=== PATIENT | female | born 1955 | race Caucasian/White ===

== ENCOUNTER 2017-06-15 19:07 | Inpatient (IN) ==
--- NOTE | 2017-06-15 19:48 | Emergency Department Note ---
Disposition Clinical Impression: Hyponatremia, Hypomagnesemia Acute renal failure Qualifiers: Acute renal failure type: unspecified Qualified Code(s): N17.9 - Acute kidney failure, unspecified Disposition: Admitted As Inpatient Condition: Good Referrals: Kitty Tan MD [Primary Care Provider] - Forms: ED Satisfaction Letter Time of Disposition: 20:20 General Adult HPI - General Chief complaint: ED Recheck/Abnormal Lab/Rx Stated complaint: Low sodium Time Seen by Provider: 06/15/17 19:11 Source: patient Limitations: no limitations Nursing Notes Reviewed: Yes Vital Signs Reviewed: Yes - History of Present Illness HPI Narrative: 61 year old female with HX of 3 weeks of generalized weakness and nausea with vomitting. Patient states taht she was seen by her primary care doctor and they did preliminary work and that her sodium was low at 116. Patient states that she vomitted this morning but feels nauseated now. Patient states she also has had a productive cough without fevers or chills. Patinet states that she sargent snot have a history of low sodium and does not have any history of lung cancer. Patinet states she does not have any history of increased water intake either. She does not have any increased altered mental status or confusion. Pain Scale: 0 - Related Data Allergies Allergy/AdvReac Type Severity Reaction Status Date / Time No Known Allergies Allergy Verified 06/15/17 19:18 Constitutional: Reports: weakness. Denies: fever, chills, weight change Eyes: Denies: eye pain, eye discharge, vision change ENT ED: Denies: ear pain, throat pain, dental pain, hearing loss, epistaxis, congestion, dysphagia Cardiovascular: Denies: chest pain, palpitations, dyspnea on exertion, edema, syncope Respiratory: Denies: cough, dyspnea, wheezes, hemoptysis, stridor Gastrointestinal: Reports: nausea, vomiting. Denies: abdominal pain, diarrhea, constipation, hematemesis, melena, hematochezia Genitourinary: Denies: dysuria, frequency, hematuria, discharge Musculoskeletal: Denies: back pain, neck pain, arthralgia, myalgia Integumentary: Denies: rash, abrasion, lesions Neurological: Denies: headache, weakness, numbness, paresthesias, confusion, abnormal gait, vertigo Psychiatric: Denies: anxiety, depression, suicidal thoughts, homicidal thoughts , auditory hallucinations, visual hallucinations Endocrine: Denies: fatigue Hematological/Lymphatic: Denies: easy bleeding, easy bruising Allergic/Immunologic: Denies: facial swelling, urticaria Past Medical History - Past Medical History Medical history: Reports: hypertension Psychiatric history: Reports: no psych history [employer]OR history: Reports: bilateral tubal ligation - Social History Smoking Status: Never smoker Smokeless Tobacco Status: No Alcohol use: Reports: occasionally Drug use: Reports: none Physical Exam - General Limitations: no limitations General appearance: alert, in no apparent distress - Head Head exam: atraumatic, normocephalic, normal inspection - Eye Eye exam: Present: normal appearance, PERRL, EOMI - Expanded Eye Exam Pupils: Left: reactive - ENT ENT exam: normal exam, normal oropharynx, mucous membranes moist - Expanded ENT Exam External ear exam: Present: normal external inspection Mouth exam: Present: normal external inspection Teeth exam: Present: normal inspection Throat exam: Present: normal inspection - Neck Neck exam: Present: normal inspection, full ROM, trachea midline - Chest Chest inspection: Present: normal inspection, symmetric chest wall rise - Respiratory Respiratory exam: Present: normal lung sounds bilaterally - Cardiovascular Cardiovascular exam: Present: regular rate, normal rhythm, normal heart sounds - Abdominal Exam Abdominal exam: Present: soft, Non-Tender. Absent: tenderness, distention, guarding, rebound, rigidity - Extremities Exam Extremities exam: Present: normal inspection, full ROM. Absent: tenderness, pedal edema - Expanded Upper Extremity Exam Shoulder exam: Present: normal inspection, full ROM Arm exam: Present: normal inspection, full ROM Elbow exam: Present: normal inspection, full ROM Forearm/Wrist exam: Present: normal inspection, full ROM Hand exam: Present: normal inspection, full ROM Vascular exam: Normal: capillary refill, radial pulse - Expanded Lower Extremity Exam Hip/Pelvis exam: Present: normal inspection, full ROM Upper leg exam: Present: normal inspection, full ROM Knee exam: Present: normal inspection, full ROM Lower leg exam: Present: normal inspection, full ROM Ankle exam: Present: normal inspection, full ROM Foot/toe exam: Present: normal inspection, full ROM Neurovascular/Tendon exam: Absent: motor deficit, sensory deficit, tendon deficit - Back Exam Back exam: Present: normal inspection, full ROM. Absent: tenderness - Neurological Exam Neurological exam: Present: alert, oriented X3 - Expanded Neurological Exam Patient oriented to: Present: person, place, time Coma Scale Eye Opening: Spontaneous Coma Scale Motor Response: Obeys Commands Coma Scale Verbal Response: Oriented Coma Scale Total: 15 - Psychiatric Psychiatric exam: Present: normal affect, normal mood - Skin Skin exam: Present: warm, dry, intact, normal color Course Course Narrative: we will do a generalized workup including a legionalla antigen and urine sodium and consult nephrology. - Consultations Consultation #1: discussed case with Dr. quinonez and he does not recommend hypertonic solution at this time. Due to her chronic hyponatremia. Restrict fluids as well as no thiazide treatments. We will admit to medicine. Time: 20:19 Consultation #2: discussed case with Dr. Ruano and he accepts patinet to his service Time: 20:27 Vital Signs Temperature 98.5 F 06/15/17 19:17 Pulse Rate 96 06/15/17 19:17 Respiratory Rate 18 06/15/17 19:17 Blood Pressure 108/70 06/15/17 19:17 O2 Sat by Pulse Oximetry 93 06/15/17 19:17 Temperature 98.5 F 06/15/17 19:17 Pulse Rate 87 06/15/17 20:17 Respiratory Rate 16 06/15/17 20:17 Blood Pressure 118/84 06/15/17 20:17 O2 Sat by Pulse Oximetry 98 06/15/17 20:17 Oxygen Delivery Oxygen Delivery Room Air Medical Decision Making - Lab Data Result diagrams: 06/15/17 19:40 06/15/17 19:40 Lab Results 06/15/17 06/15/17 06/15/17 Range/Units 19:40 19:40 19:40 WBC 8.9 (4.3-11.1) K/mcL RBC 3.38 L (3.82-4.97) M/mcL Hgb 12.1 (11.5-15.4) g/dL Hct 32.8 L (35.3-44.9) % MCV 97.0 (83.0-100.0) fL MCH 35.8 H (28.0-33.3) pg MCHC 36.9 H (31.6-35.5) g/dL RDW 11.8 (11.5-14.5) % Plt Count 218 (140-400) K/mcL MPV 8.1 L (9.4-12.4) fL Immature Gran % 1.0 (0-4) % Seg Neutrophils % 71.4 % Lymphocytes % 16.7 % Monocytes % 10.3 % Eosinophils % 0.3 % Basophils % 0.3 % Neutrophils # 6.3 (1.6-8.9) K/mcL Lymphocytes # 1.5 (0.6-4.6) K/mcL Monocytes # 0.9 (0.0-1.3) K/mcL Eosinophils # 0.0 (0.0-0.6) K/mcL Basophils # 0.0 (0.0-0.2) K/mcL PT 9.9 (9.4-12.1) Seconds INR 0.9 APTT 26.5 (26.0-36.0) Seconds Sodium 115 L* (136-145) mEq/L Potassium 3.0 L (3.5-4.5) mEq/L Chloride 74 L (98-109) mEq/L Carbon Dioxide 28 (19-29) mEq/L BUN 14 (7-20) mg/dL Creatinine 1.31 H (0.57-1.11) mg/dL Est GFR ( Amer) 50 L (> 60) Est GFR (Non-Af Amer) 41 L (> 60) BUN/Creatinine Ratio 11 (6-26) Glucose 103 H (70-99) mg/dL Calculated Osmolality 241 L (280-300) Lactic Acid (0.5-2.2) mmol/L Calcium 9.1 (8.6-10.8) mg/dL Phosphorus (2.3-4.7) mg/dL Magnesium (1.6-2.6) mg/dL Total Bilirubin 0.8 (0.2-1.2) mg/dL Direct Bilirubin 0.5 (0.0-0.5) mg/dL Indirect Bilirubin 0.3 (0.0-1.2) mg/dL AST 68 H (5-34) Units/L ALT 40 (0-55) Units/L Alkaline Phosphatase 140 H (38-126) Units/L Troponin I (0-0.03) ng/mL Serum Total Protein 7.1 (6.0-8.3) g/dL Albumin 3.5 (3.5-5.0) g/dL Globulin 3.6 H (2.4-3.5) g/dL Albumin/Globulin Ratio 1.0 L (1.1-2.2) Amylase 41 (25-125) Units/L Lipase 16 (8-78) Units/L Urine Color (Yellow) Urine Clarity (Clear) Urine pH (5.0-8.0) pH Units Ur Specific [place] (1.010-1.025) Urine Protein (Neg-Trace) mg/dL Urine Glucose (UA) (Normal) mg/dL Urine Ketones (Negative) mg/dL Urine Blood (Negative) Urine Nitrite (Negative) Urine Bilirubin (Negative) Urine Urobilinogen (Normal) mg/dL Ur Leukocyte Esterase (Negative) Urine Microscopic RBC (0-3) per hpf Urine Microscopic WBC (0-3) per hpf Ur Squamous Epith Cells (None-Few) per lpf Urine Bacteria (None-Few) per hpf Hyaline Casts (None-Few) per lpf Ur Culture Indicated? (NO) Urine Sodium mEq/L 06/15/17 06/15/17 06/15/17 Range/Units 19:40 19:40 19:40 WBC (4.3-11.1) K/mcL RBC (3.82-4.97) M/mcL Hgb (11.5-15.4) g/dL Hct (35.3-44.9) % MCV (83.0-100.0) fL MCH (28.0-33.3) pg MCHC (31.6-35.5) g/dL RDW (11.5-14.5) % Plt Count (140-400) K/mcL MPV (9.4-12.4) fL Immature Gran % (0-4) % Seg Neutrophils % % Lymphocytes % % Monocytes % % Eosinophils % % Basophils % % Neutrophils # (1.6-8.9) K/mcL Lymphocytes # (0.6-4.6) K/mcL Monocytes # (0.0-1.3) K/mcL Eosinophils # (0.0-0.6) K/mcL Basophils # (0.0-0.2) K/mcL PT (9.4-12.1) Seconds INR APTT (26.0-36.0) Seconds Sodium (136-145) mEq/L Potassium (3.5-4.5) mEq/L Chloride (98-109) mEq/L Carbon Dioxide (19-29) mEq/L BUN (7-20) mg/dL Creatinine (0.57-1.11) mg/dL Est GFR ( Amer) (> 60) Est GFR (Non-Af Amer) (> 60) BUN/Creatinine Ratio (6-26) Glucose (70-99) mg/dL Calculated Osmolality (280-300) Lactic Acid 1.9 (0.5-2.2) mmol/L Calcium (8.6-10.8) mg/dL Phosphorus 2.5 (2.3-4.7) mg/dL Magnesium 1.1 L (1.6-2.6) mg/dL Total Bilirubin (0.2-1.2) mg/dL Direct Bilirubin (0.0-0.5) mg/dL Indirect Bilirubin (0.0-1.2) mg/dL AST (5-34) Units/L ALT (0-55) Units/L Alkaline Phosphatase (38-126) Units/L Troponin I 0.02 (0-0.03) ng/mL Serum Total Protein (6.0-8.3) g/dL Albumin (3.5-5.0) g/dL Globulin (2.4-3.5) g/dL Albumin/Globulin Ratio (1.1-2.2) Amylase (25-125) Units/L Lipase (8-78) Units/L Urine Color (Yellow) Urine Clarity (Clear) Urine pH (5.0-8.0) pH Units Ur Specific [place] (1.010-1.025) Urine Protein (Neg-Trace) mg/dL Urine Glucose (UA) (Normal) mg/dL Urine Ketones (Negative) mg/dL Urine Blood (Negative) Urine Nitrite (Negative) Urine Bilirubin (Negative) Urine Urobilinogen (Normal) mg/dL Ur Leukocyte Esterase (Negative) Urine Microscopic RBC (0-3) per hpf Urine Microscopic WBC (0-3) per hpf Ur Squamous Epith Cells (None-Few) per lpf Urine Bacteria (None-Few) per hpf Hyaline Casts (None-Few) per lpf Ur Culture Indicated? (NO) Urine Sodium mEq/L 06/15/17 06/15/17 Range/Units 19:48 19:55 WBC (4.3-11.1) K/mcL RBC (3.82-4.97) M/mcL Hgb (11.5-15.4) g/dL Hct (35.3-44.9) % MCV (83.0-100.0) fL MCH (28.0-33.3) pg MCHC (31.6-35.5) g/dL RDW (11.5-14.5) % Plt Count (140-400) K/mcL MPV (9.4-12.4) fL Immature Gran % (0-4) % Seg Neutrophils % % Lymphocytes % % Monocytes % % Eosinophils % % Basophils % % Neutrophils # (1.6-8.9) K/mcL Lymphocytes # (0.6-4.6) K/mcL Monocytes # (0.0-1.3) K/mcL Eosinophils # (0.0-0.6) K/mcL Basophils # (0.0-0.2) K/mcL PT (9.4-12.1) Seconds INR APTT (26.0-36.0) Seconds Sodium (136-145) mEq/L Potassium (3.5-4.5) mEq/L Chloride (98-109) mEq/L Carbon Dioxide (19-29) mEq/L BUN (7-20) mg/dL Creatinine (0.57-1.11) mg/dL Est GFR ( Amer) (> 60) Est GFR (Non-Af Amer) (> 60) BUN/Creatinine Ratio (6-26) Glucose (70-99) mg/dL Calculated Osmolality (280-300) Lactic Acid (0.5-2.2) mmol/L Calcium (8.6-10.8) mg/dL Phosphorus (2.3-4.7) mg/dL Magnesium (1.6-2.6) mg/dL Total Bilirubin (0.2-1.2) mg/dL Direct Bilirubin (0.0-0.5) mg/dL Indirect Bilirubin (0.0-1.2) mg/dL AST (5-34) Units/L ALT (0-55) Units/L Alkaline Phosphatase (38-126) Units/L Troponin I (0-0.03) ng/mL Serum Total Protein (6.0-8.3) g/dL Albumin (3.5-5.0) g/dL Globulin (2.4-3.5) g/dL Albumin/Globulin Ratio (1.1-2.2) Amylase (25-125) Units/L Lipase (8-78) Units/L Urine Color Yellow (Yellow) Urine Clarity Cloudy A (Clear) Urine pH 6.5 (5.0-8.0) pH Units Ur Specific [place] 1.010 (1.010-1.025) Urine Protein Negative (Neg-Trace) mg/dL Urine Glucose (UA) Normal (Normal) mg/dL Urine Ketones Negative (Negative) mg/dL Urine Blood Negative (Negative) Urine Nitrite Negative (Negative) Urine Bilirubin Negative (Negative) Urine Urobilinogen Normal (Normal) mg/dL Ur Leukocyte Esterase Negative (Negative) Urine Microscopic RBC 0-3 (0-3) per hpf Urine Microscopic WBC 0-3 (0-3) per hpf Ur Squamous Epith Cells Many H (None-Few) per lpf Urine Bacteria Few (None-Few) per hpf Hyaline Casts None Seen (None-Few) per lpf Ur Culture Indicated? NO (NO) Urine Sodium < 20.0 mEq/L - EKG Data EKG #1 EKG attestation: Yes I reviewed and interpreted this EKG. EKG results narrative: NSR with rate of 92. NO STEMI. normal intervals. no change from old ekg . 193
[2017-06-15 19:51] LABS: Basophils % 0.3 %; Eosinophils % 0.3 %; Hematocrit 32.8 % (35.3-44.9); Hemoglobin 12.1 g/dL (11.5-15.4); Lymphocytes # 1.5 K/mcL (0.6-4.6); Lymphocytes % 16.7 %; Mean Corpuscular HGB Conc 36.9 g/dL (31.6-35.5); Mean Corpuscular Hemoglobin 35.8 pg (28.0-33.3); Mean Platelet Volume 8.1 fL (9.4-12.4); Monocytes # 0.9 K/mcL (0.0-1.3); Monocytes % 10.3 %; Neutrophils # 6.3 K/mcL (1.6-8.9); Platelet Count 218 K/mcL (140-400); Red Blood Count 3.38 M/mcL (3.82-4.97); Red Cell Distribution Width 11.8 % (11.5-14.5); Segmented Neutrophils % 71.4 %
[2017-06-15 19:57] LABS: INR 0.9; Prothrombin Time 9.9 Seconds (9.4-12.1)
[2017-06-15 20:00] LABS: Activated Partial Thrombo Time 26.5 Seconds (26.0-36.0)
[2017-06-15 20:03] LABS: Magnesium 1.1 mg/dL (1.6-2.6); Phosphorous 2.5 mg/dL (2.3-4.7)
[2017-06-15 20:03] LABS: Bilirubin,Urine Negative (Negative); Blood,Urine Negative (Negative); Clarity,Urine Cloudy (Clear); Color,Urine Yellow (Yellow); Glucose,Urine (UA) Normal (Normal); Ketones,Urine Negative (Negative); Leukocyte Esterase,Urine Negative (Negative); Nitrite,Urine Negative (Negative); PH,Urine 6.5 pH Units (5.0-8.0); Protein,Urine Negative (Neg-Trace); Urobilinogen,Urine Normal (Normal)
[2017-06-15 20:06] LABS: Bacteria,Urine Few per hpf (None-Few); Hyaline Casts,Urine None Seen per lpf (None-Few); RBC,Urine 0-3 per hpf (0-3); Squamous Epithelial Cell,Urine Many per lpf (None-Few); WBC,Urine 0-3 per hpf (0-3)
[2017-06-15 20:07] LABS: Albumin 3.5 g/dL (3.5-5.0); Bilirubin,Direct 0.5 mg/dL (0.0-0.5); Bilirubin,Indirect 0.3 mg/dL (0.0-1.2); Bilirubin,Total 0.8 mg/dL (0.2-1.2); Calcium 9.1 mg/dL (8.6-10.8); Globulin 3.6 g/dL (2.4-3.5); Total Protein 7.1 g/dL (6.0-8.3)
[2017-06-15] MEDS ORDERED: Ondansetron 4 MG/2 ML VIAL IVP ONE (20:07)
[2017-06-15] MEDS ORDERED: Acetaminophen 325 MG TABLET PO PRN (21:03)
[2017-06-15] MEDS ORDERED: Ondansetron 4 MG/2 ML VIAL IVP PRN (21:03)
--- NOTE | 2017-06-15 21:09 | Internal Med History&Physical ---
<Divya Flores - Last Filed: 06/15/17 22:00> Date of Encounter: 06/15/17 Time of Encounter: 20:20 Assessment and Plan (1) Hyponatremia Current visit: Yes Status: Acute - Likely acute on chronic symptomatic hypotonic hyponatremia with reported nausea, vomiting, short-term memory problem for 2 months. - Na 115 on admission. History of mild hyponatremia (Na in low 130s) in 2016. - Patient appears to be euvolemic or mild hypovolemic. - Urine Na < 20 and FENa < 0.4% suggestive likely extrarenal loss. - Pending urine osm. Consider SIADH if it's elevated. - Dr. French had been consulted and recommended free water restriction but no hypertonic saline at this time. Appreciate nephrology evaluation and recommendations. - Admit to hospital for IV fluid treatment and close monitoring with serum sodium check every 4 hours. Total time spent on admission: 40 minutes. (2) Acute renal failure Current visit: Yes Status: Acute - SCr 1.31 / eGFR 41 on admission, which are worse compared to SCr 0.78 / eGFR > 60 on 06/28/16. - Likely prerenal secondary to hypovolemia from nausea/vomiting and diuretic use. Other differential include intrinsic cause such as AIN (given PPI use and occasional NSAIDs use) and postrenal (patient reports difficulty to urinate but no significant obstructive uropathy noted on CT A/P). - Continue IV NS. - Dr. French had been consulted. Appreciate nephrology evaluation and recommendations. Qualifiers: Acute renal failure type: unspecified Qualified Code(s): N17.9 - Acute kidney failure, unspecified (3) Hypokalemia Current visit: Yes Status: Acute - K 3.0 on admission. - Will replenish with 40 meq of KCl. - Continue to monitor and replenish accordingly (4) Hypomagnesemia Current visit: Yes Status: Acute - Mg 1.1 on admission. - Will give 4 gram of IV MgSO4. - Continue to monitor and replenish accordingly (5) Hypertension Current visit: Yes Status: Chronic - BP within normal range. - Hold diuretic for now given current VITOR. Qualifiers: Hypertension type: essential hypertension Qualified Code(s): I10 - Essential (primary) hypertension (6) GERD (gastroesophageal reflux disease) Current visit: Yes Status: Chronic - Patient takes omeprazole at home. - Hold PPI for now given current VITOR. Qualifiers: Esophagitis presence: without esophagitis Qualified Code(s): K21.9 - Gastro -esophageal reflux disease without esophagitis (7) DVT prophylaxis Current visit: Yes Status: Acute - SQ heparin. Internal Medicine - H&P: HPI Chief complaint: Hyponatremia Admitted From: Emergency Dept Plans for Post Hospital Care: Home History of present illness: Ms. Larson is a 61 year old female with PMH of HTN, GERD and history of hyponatremia. Patient was sent to [place] ED by her PCP after her lab today showed Na 116. Patient reports having nausea, vomiting, generalized weakness, short-term memory and coordination problem for 2 months. Patient also has some productive cough with clear sputum and difficulty urinating, for which she had one-week temporary right ureteral stent placed. Patient reports his tremors are chronic. Patient denies shortness of breath, chest pain, abdominal pain, diarrhea, dysuria, fever, chills. Patient does not think she drinks excessive amount of fluid. Patient denies tobacco use and only has alcoholic drink once every one to two weeks. Patient is full code. In ED, patient was noted to have Na 115 and Mg 1.1. CXR found no acute cardiopulmonary abnormality. CT A/P found no acute abdominal/pelvic abnormality but diffuse hepatic steatosis without focal hepatic lesion or surface nodularity. ED physician discussed the case with Dr. French of nephrology, who recommends fluid restriction but not hypertonic solution at this time given her hyponatremia is likely chronic. Past Med Surg Social Fam HX - Past Medical History Source: patient, old records reviewed Medical history: GERD, hypertension Psychiatric history: no psych history - Past Surgical History Surgical History: hip replacement (left), ureteral stent (Right, temporary for one week), other (tubal ligation), arthroscopy (Right knee) - Social History Smoking Status: Never smoker Smokeless Tobacco Status: No Alcohol use: occasionally Drug use: none - Family History Father Living Status: Hx Family Cardiac Disorders: Yes ([place]) Hx Family Endocrine Disorder: Yes (DM2) Hx Family Neurologic Disorders: Yes (Stroke) Mother Living Status: Hx Family Cancer: Yes (Ovarian cancer) Internal Medicine - H&P: Meds Aspirin Enteric Coated [Aspirin EC] 81 mg PO DAILY 06/15/17 [History] Buspirone HCl [Buspar] 10 mg PO BID 06/15/17 [History] Losartan [Cozaar] 25 mg PO DAILY 06/15/17 [History] Omeprazole [PriLOSEC] 40 mg PO DAILY 06/15/17 [History] Venlafaxine HCl [Venlafaxine HCl ER] 150 mg PO DAILY 06/15/17 [History] hydroCHLOROthiazide [Hydrochlorothiazide] 12.5 mg PO DAILY 06/15/17 [History] 3 Allergy/AdvReac Type Severity Reaction Status Date / Time No Known Allergies Allergy Verified 06/15/17 19:18 All Systems PM: A 10-system review of systems was performed and is negative for pertinent findings except as documented above in the HPI. - Constitutional Constitutional: anorexia, weight loss, no chills, no fever(s) - EENT Eyes: no change in vision Ears: no decreased hearing Nose, mouth and throat: no dysphagia, no odynophagia - Cardiovascular Cardiovascular ROS IM: no chest pain, no lightheadedness, no syncope - Respiratory Respiratory: cough (with clear sputum), no dyspnea, no hemoptysis - Gastrointestinal Gastrointestinal: nausea, vomiting, no abdominal pain, no diarrhea, no hematochezia, no melena - Genitourinary Genitourinary: difficulty urinating, no dysuria - Musculoskeletal Musculoskeletal ROS IM: myalgias (Shoulder), no arthralgias - Integumentary Integumentary IM: no pruritus, no rash - Neurological Neurological ROS: no focal weakness, no numbness, no tingling - Hematologic/Lymphatic Hematologic/Lymphatic: no easy bleeding, no easy bruising - Constitutional Vitals: Temp Pulse Resp BP Pulse Ox 98.5 F 87 16 108/69 98 06/15/17 19:17 06/15/17 20:17 06/15/17 21:04 06/15/17 21:04 06/15/17 20:17 General appearance: Present: cooperative, A&O X 3, no acute distress, answers questions appropriately - Head Head exam: Present: atraumatic, normocephalic - Eye Eye exam: Present: EOMI, PERRL, conjuntiva pink, sclera anicteric - Neck Neck exam general surgery: Present: supple, trachea midline. Absent: lymphadenopathy - Respiratory Respiratory exam: Present: CTAB. Absent: accessory muscle use, rales, rhonchi, wheezes - Cardiovascular Cardiovascular exam: Present: RRR, +S1, +S2. Absent: diastolic murmur, gallop, rubs, systolic murmur - GI/Abdominal GI/Abdominal exam: Present: normal bowel sounds, soft, no peritoneal signs. Absent: distended, tenderness - Extremities Exam Extremities exam: Present: pedal edema (Mild bilateral ankle non-pitting edema) , warm, radial pulses palpable and symmetrical. Absent: calf tenderness, cyanotic - Neurological Exam Neurological exam: Present: CN II-XII intact, oriented X3, no focal deficits. Absent: pronater drift, facial droop, speech deficit - Skin Skin exam: Present: dry, intact, warm Internal Med - H&P Results - Labs CBC & Chem 7: 06/15/17 19:40 06/15/17 19:40 <Lorenzo Turner - Last Filed: 06/15/17 22:15> Date of Encounter: 06/15/17 Internal Medicine - H&P: HPI History of present illness: Ms. Larson is a 61 year old female All Systems PM: A 10-system review of systems was performed and is negative for pertinent findings except as documented above in the HPI. - Constitutional Vitals: Temp Pulse Resp BP Pulse Ox 98.4 F 94 16 111/72 98 06/15/17 21:43 06/15/17 21:43 06/15/17 21:43 06/15/17 21:43 06/15/17 21:43 Internal Med - H&P Results - Labs CBC & Chem 7: 06/15/17 19:40 06/15/17 19:40 - Attending Attestation I examined this patient and my medical decision-making was reviewed with the Resident Physician. I agree with the documented findings, disposition and treatment plan as described except to the extent set forth below. 61-year-old female with a history of hypertension on diuretics who presents with subacute worsening of generalized weakness, nausea and vomiting occurring from once every 3-4 times a day in the last 2 months that is not improving. Recently also felt to be more lightheaded, discoordinated. She has reported history of chronic mild hyponatremia in the high 120s to low 130s. The ER discussed case with Dr. Rick nephrology who suggested fluid restrictions and withholding of hypertonic saline for now. She was also found to be hypomagnesemic. ROS 14 point review of systems reviewed as best as possible given presentation. Pertinent positive or negative as per HPI or otherwise reviewed as negative General - AAO x 3 Psych - Appropriate affect/speech. No agitation Eyes - JASSON. Eye lids intact. No scleral icterus Neuro - No gross peripheral or central neuro deficits with intact CN 2-12 exam Heart - Sinus. RRR. S1 and S2 present. No added HS/murmurs appreciated. No elevated JVD appreciated. No calf swellings/erythema Lung - Adequate air entry b/l, No crackes/wheezes appreciated GI - Soft, non-tender. No hepatosplenomegaly/ascites. BS+ - No CVA/suprapubic tenderness or palpable bladder distension Skin - Intact. No rash/petechiae/ecchymosis. Warm extremities MSK - Joints with normal ROM. No joint swellings A/P Acute on chronic hyponatremia - Urine Na <20, pending urine osmo - suspect volume depletion instead of SIADH ??? - hold HCTZ - 75 cc/hr 0.9 isotonic fluid for now - trend Na q4h, avoid > 10 meq correction per day VITOR mild - IVF HypoK HypoM - replete Mg, K with fluids HTN - hold HCTZ - continue losartan GERD Depression
[2017-06-15] MEDS ORDERED: 0.9 % Sodium Chloride 1,000 ML IVC SCH (21:15)
[2017-06-15] MEDS ORDERED: Magnesium Sulfate 2 GM in D5% in Water 100 ML IVPB ONE ×2 (21:18→22:30)
[2017-06-15 21:32] LABS: Creatinine,Urine 52 mg/dL
[2017-06-15] MEDS ORDERED: 0.9 % Sodium Chloride w KCl 20 MEQ/1,000 ML MLS IVC SCH (22:15)
[2017-06-15] MEDS: *HR* Heparin 5,000 UNIT/ML VIAL SQ SCH (22:16)
[2017-06-15 23:08] LABS: Osmolality,Urine 146 mOsm/kg (300-1090)
[2017-06-16 00:42] LABS: Mean Corpuscular HGB Conc 36.7 g/dL (31.6-35.5); Mean Corpuscular Hemoglobin 35.9 pg (28.0-33.3); Platelet Count 179 K/mcL (140-400); Red Blood Count 3.06 M/mcL (3.82-4.97); Red Cell Distribution Width 11.9 % (11.5-14.5)
[2017-06-16 00:58] LABS: Calcium 8.4 mg/dL (8.6-10.8); Potassium 3.4 mEq/L (3.5-4.5)
[2017-06-16] MEDS ORDERED: 0.9 % Sodium Chloride w KCl 20 MEQ/1,000 ML MLS IVC SCH (01:05)
[2017-06-16 03:11] LABS: Calcium 8.5 mg/dL (8.6-10.8); Potassium 3.8 mEq/L (3.5-4.5)
[2017-06-16] MEDS: *HR* Heparin 5,000 UNIT/ML VIAL SQ SCH ×3 (05:17→21:18)
[2017-06-16] MEDS: 0.9 % Sodium Chloride 1,000 ML IVC SCH ×2 (05:17→20:20)
[2017-06-16] MEDS: Aspirin Enteric Coated 81 MG Tablet PO SCH (08:02)
[2017-06-16] MEDS: Venlafaxine XR (24 HR) 150 MG CAP.ER.24H PO SCH (08:02)
--- NOTE | 2017-06-16 10:58 | Nephrology Consult Note ---
Date of Encounter: 06/16/17 Time of Encounter: 10:20 Assessment and Plan (1) Hyponatremia Current Visit: Yes Status: Acute Hyponatremia in setting of HCTZ, Effexor, decreased oral intake and GI losses with daily emesis. Should not take HCTZ. Consider weaning off Effexor. Consider reconsult GI. Will repeat urine osmal, TSH obtain random cortisol. Continue current IV fluids. Will continue to monitor. History of Present Illness - Reason for Consult hyponatremia - History of Present Illness Ms. Larson is a 61 year old female with PMH of Hypertension. Presented with generalized weakness and short term memory loss for three weeks. States has had ongoing nausea and vomiting for 2-3 months. She states has emesis at least once daily and sometimes as much as three times a day. "Mostly liquids." She states she has constant low level nausea, has not had an appetite and has early satiety after few bites of food. She states may have lost three pounds in last three months, appears euvolemic. She states she may drink 6-8 cups a water daily but not more. She denies alcohol consumption except rare social occasions. Ms. Larson states she has had similar GI issues for greater than a year that waxes and wanes with current episode for past few months. She states she had a full GI workup about a year ago with [facility]. She admits being told once in past that sodium was low and had blood rechecked week later and told back to normal. ER labs, sodium 115, K 3.0. Urine sodium< 20. Urine osm 146. She denies history of renal insufficiency, though older labs show creatinine between 1.2-1.3. Labs today, sodium 117, creat 1.19. Home medications include HCTZ and Effexor. Past Med Surg Social Fam HX - Past Medical History Medical history: GERD, hypertension Psychiatric history: no psych history - Past Surgical History Surgical History: hip replacement (left), ureteral stent (Right, temporary for one week), other (tubal ligation), arthroscopy (Right knee) - Social History Smoking Status: Never smoker Smokeless Tobacco Status: No Alcohol use: occasionally Drug use: none - Family History Father Family Member Ethnicity: Non- Living Status: Age at : 73 Hx Family Cardiac Disorders: Yes (SD) Hx Family Cancer: No Hx Family GI Disorders: No Hx Family Genitourinary Disorders: No Hx Family Endocrine Disorder: Yes (DM2) Hx Family Musculoskeletal Disorders: No Hx Family Neuromuscular Disorders: No Hx Family Neurologic Disorders: Yes (Stroke) Hx Family HEENT Disorders: No Hx Family Autoimmune Disorders: No Hx Family Reproductive Disorders: No Hx Family Psychosocial Disorders: No Hx Family Medical Disorders: No Mother Adopted: No Age: 57 Family Member Ethnicity: Non- Living Status: Age at : 57 Hx Family Cardiac Disorders: No Hx Family Respiratory Disorders: No Hx Family Cancer: Yes (Ovarian cancer) Hx Family Genitourinary Disorders: No Hx Family Endocrine Disorder: No Hx Family Musculoskeletal Disorders: No Hx Family Neuromuscular Disorders: No Hx Family Neurologic Disorders: No Hx Family HEENT Disorders: No Hx Family Autoimmune Disorders: No Hx Family Reproductive Disorders: No Hx Family Psychosocial Disorders: No Hx Family Medical Disorders: No Medications and Allergies Aspirin Enteric Coated [Aspirin EC] 81 mg PO DAILY 06/15/17 [History] Buspirone HCl [Buspar] 10 mg PO BID 06/15/17 [History] Losartan [Cozaar] 25 mg PO DAILY 06/15/17 [History] Omeprazole [PriLOSEC] 40 mg PO DAILY 06/15/17 [History] Venlafaxine HCl [Venlafaxine HCl ER] 150 mg PO DAILY 06/15/17 [History] hydroCHLOROthiazide [Hydrochlorothiazide] 12.5 mg PO DAILY 06/15/17 [History] 3 Allergy/AdvReac Type Severity Reaction Status Date / Time No Known Allergies Allergy Verified 06/15/17 19:18 Exam - Vital Signs Vital signs: Initial Vital Signs Temp Pulse Resp BP Pulse Ox 98.5 F 96 18 108/70 93 06/15/17 19:17 06/15/17 19:17 06/15/17 19:17 06/15/17 19:17 06/15/17 19:17 Vital Signs - Last 8 Hours Temp Pulse Resp BP Pulse Ox 06/16/17 07:03 98.0 F 77 17 118/77 98 06/16/17 03:45 98.3 F 80 16 118/77 97 Intake and Output 06/15/17 06/16/17 06/16/17 23:59 07:59 15:59 Intake Total 10 / 10 Output Total 550 / 550 Balance -540 / -540 Intake: Oral 10 / 10 Output: Urine 550 / 550 Other: # Voids 1 Weight 69.127 kg Patient Weight 06/16/17 23:59 Weight 69.127 kg - General Appearance General appearance: well-developed, well-nourished, appears started age EENT: mucous membranes moist Neck: no JVD Respiratory: clear Cardiology: no edema, regular rate, regular rhythm Gastrointestinal: normoactive bowel sounds, no tenderness Integumentary: warm and dry Neurologic: alert and oriented x3 Psychiatric: mood/affect appropriate, cooperative Results - Lab Results 06/16/17 00:33 06/16/17 08:08 Most recent lab results Calcium 8.5 mg/dL (8.6-10.8) L 06/16/17 02:30 Phosphorus 2.5 mg/dL (2.3-4.7) 06/15/17 19:40 Magnesium 3.0 mg/dL (1.6-2.6) H 06/16/17 02:30 Urine Creatinine 52 mg/dL 06/15/17 19:20 Urine Sodium < 20.0 mEq/L 06/15/17 19:55 Consult Discharge Plan - Plan Referrals: Kitty Tan MD [Primary Care Provider] -
[2017-06-16 12:21] LABS: Thyroid Stimulating Hormone 1.343 mcIU/mL (0.350-4.840)
--- NOTE | 2017-06-16 16:21 | Internal Med Progress Note ---
<ZeusAndre Lei - Last Filed: 06/16/17 16:31> Date of Encounter: 06/16/17 Time of Encounter: 09:12 - Assessment and plan (1) Hyponatremia Current Visit: Yes Status: Acute Assessment and plan: Na 115 on admission, now 118 Likely acute on chronic - previously Na in low 130s - exacerbated now by N/V Patient is euvolemic Likely prerenal secondary to N/V: Urine Na <20, Urine Osm 146, and FENa <0.4% Less likely SIADH with low urine osm Plan: Nephrology consulted - appreciate recommendations Hold HCTZ Consider weaning from Effexor Continue Q4H Na checks Freewater restriction Continue IV fluids (2) Acute renal failure Current Visit: Yes Status: Acute Assessment and plan: Cr 1.19, GFR 46 (baseline Cr 0.8) Likely prerenal secondary to N/V Plan as above Qualifiers: Acute renal failure type: unspecified Qualified Code(s): N17.9 - Acute kidney failure, unspecified (3) Hypomagnesemia Current Visit: Yes Status: Acute Assessment and plan: Resolved - Mag now 3.0 Continue to monitor and replace as needed (4) Hypokalemia Current Visit: Yes Status: Acute Assessment and plan: Resolved - now 4.0 Continue to monitor and replace as needed (5) Hypertension Current Visit: Yes Status: Chronic Assessment and plan: Normotensive currently - continue to hold HCTZ Qualifiers: Hypertension type: essential hypertension Qualified Code(s): I10 - Essential (primary) hypertension (6) GERD (gastroesophageal reflux disease) Current Visit: Yes Status: Chronic Assessment and plan: On PPI at home - continue to hold now No reflux symptoms Qualifiers: Esophagitis presence: without esophagitis Qualified Code(s): K21.9 - Gastro -esophageal reflux disease without esophagitis (7) DVT prophylaxis Current Visit: Yes Status: Acute Assessment and plan: Subcutaneous Heparin - Subjective Interval history: Patient seen and examined. She reports nausea and vomiting for the past 2 months , improved on medication now. Has not had much of an appetite over this timeframe. She goes in after lab work with low sodium (115). She had low sodium once prior, but not associated with any symptoms, and when it was rechecked her sodium was normal. This time is different because she is having symptoms. She reports generalized weakness and difficulty with memory for the past 3 weeks as well. She denies chest pain, dyspnea, cough, diarrhea, dysuria, or leg pain/ swelling. - Constitutional Vitals: Temp Pulse Resp BP Pulse Ox 98.3 F 79 17 123/80 98 06/16/17 11:06 06/16/17 11:06 06/16/17 11:06 06/16/17 11:06 06/16/17 11:06 General appearance: Present: cooperative, A&O X 3, no acute distress, answers questions appropriately - Head Head exam: Present: atraumatic, normocephalic - Eye Eye exam: Present: conjuntiva pink, sclera anicteric - ENT ENT exam: Present: mucous membranes moist - Respiratory Respiratory exam: Present: CTAB. Absent: rales, rhonchi, wheezes - Cardiovascular Cardiovascular exam: Present: RRR, +S1, +S2. Absent: diastolic murmur, systolic murmur - GI/Abdominal GI/Abdominal exam: Present: normal bowel sounds, soft. Absent: distended, rigid , tenderness - Extremities Exam Extremities exam: Present: warm, radial pulses palpable and symmetrical. Absent : pedal edema, tenderness - Neurological Exam Neurological exam: Present: alert, CN II-XII intact, oriented X3, no focal deficits - Skin Skin exam: Present: dry, intact Internal Medicine: Result - Labs CBC & Chem 7: 06/16/17 00:33 06/16/17 08:08 Labs: Short CBC 06/16/17 Range/Units 00:33 WBC 8.3 (4.3-11.1) K/mcL Hgb 11.0 L (11.5-15.4) g/dL Hct 30.0 L (35.3-44.9) % Plt Count 179 (140-400) K/mcL BMP 06/16/17 06/16/17 06/16/17 00:33 02:30 08:08 Sodium 115 L* 117 L* 118 L* Potassium 3.4 L 3.8 Chloride 77 L 78 L Carbon Dioxide 26 27 BUN 14 13 Creatinine 1.26 H 1.19 H Glucose 105 H 104 H Calcium 8.4 L 8.5 L - ABG Interpretation ABG results: PT/INR, D-dimer PT 9.9 Seconds (9.4-12.1) 06/15/17 19:40 Consult Discharge Plan - Plan Referrals: Kitty Tan MD [Primary Care Provider] - 06/23/17 1:45 pm (Please follow up as schedule....) <Buck Rodriguezit P - Last Filed: 06/16/17 17:13> Date of Encounter: 06/16/17 - Constitutional Vitals: Temp Pulse Resp BP Pulse Ox 98.3 F 78 17 126/81 96 06/16/17 16:44 06/16/17 16:44 06/16/17 16:44 06/16/17 16:44 06/16/17 16:44 Internal Medicine: Result - Labs CBC & Chem 7: 06/16/17 00:33 06/16/17 08:08 Labs: Short CBC 06/16/17 Range/Units 00:33 WBC 8.3 (4.3-11.1) K/mcL Hgb 11.0 L (11.5-15.4) g/dL Hct 30.0 L (35.3-44.9) % Plt Count 179 (140-400) K/mcL BMP 06/16/17 06/16/17 06/16/17 00:33 02:30 08:08 Sodium 115 L* 117 L* 118 L* Potassium 3.4 L 3.8 Chloride 77 L 78 L Carbon Dioxide 26 27 BUN 14 13 Creatinine 1.26 H 1.19 H Glucose 105 H 104 H Calcium 8.4 L 8.5 L - ABG Interpretation ABG results: PT/INR, D-dimer PT 9.9 Seconds (9.4-12.1) 06/15/17 19:40 - Attending Attestation I examined this patient and my medical decision-making was reviewed with the Resident Physician. I agree with the documented findings, disposition and treatment plan as described except to the extent set forth below. Etiology for hyponatremia: Multifactorial. Nephrology on board. We will follow the recommendations from nephrology.
[2017-06-17 05:21] LABS: Hematocrit 29.2 % (35.3-44.9); Hemoglobin 10.3 g/dL (11.5-15.4); Mean Corpuscular HGB Conc 35.3 g/dL (31.6-35.5); Mean Corpuscular Hemoglobin 35.5 pg (28.0-33.3); Mean Corpuscular Volume 100.7 fL (83.0-100.0); Mean Platelet Volume 8.9 fL (9.4-12.4); Platelet Count 204 K/mcL (140-400); Red Cell Distribution Width 11.9 % (11.5-14.5)
[2017-06-17 05:35] LABS: Calcium 8.5 mg/dL (8.6-10.8); Magnesium 1.9 mg/dL (1.6-2.6); Potassium 3.6 mEq/L (3.5-4.5)
[2017-06-17] MEDS: *HR* Heparin 5,000 UNIT/ML VIAL SQ SCH ×3 (05:51→21:51)
[2017-06-17] MEDS: Aspirin Enteric Coated 81 MG Tablet PO SCH (07:47)
[2017-06-17] MEDS: Venlafaxine XR (24 HR) 150 MG CAP.ER.24H PO SCH (07:47)
[2017-06-17] MEDS: 0.9 % Sodium Chloride 1,000 ML IVC SCH ×2 (07:51→20:22)
--- NOTE | 2017-06-17 08:07 | Nephrology Progress Note ---
Date of Encounter: 06/17/17 Time of Encounter: 08:06 - Assessment and Plan (1) Hyponatremia Current Visit: Yes Status: Acute Patient has a clinical picture of euvolemic hyponatremia. Etiology includes hydrochlorothiazide and possibly Effexor as well. The hyponatremia is chronic and has been acutely exacerbated because of nausea vomiting and decreased oral intake. She should remain off all thiazide diuretics indefinitely. Consideration should be given to discontinuing the Effexor. She can continue on IV fluids for 1 more day. We will continue to monitor her sodium. Subjective Interval history: Patient reports she is feeling better. She is no longer experiencing nausea or vomiting. Sodium is up to 121. Urine osmolality is appropriate dilute at 147. Random cortisol was normal. TSH is also normal. Objective - Vital Signs Vital signs: Vital Signs Temp Pulse Resp BP Pulse Ox 06/17/17 07:15 97.7 F 84 18 119/77 97 06/17/17 04:18 97.9 F 82 16 138/83 98 06/17/17 00:28 98.2 F 84 16 131/74 98 06/16/17 19:29 98.3 F 90 16 133/76 99 06/16/17 16:44 98.3 F 78 17 126/81 96 06/16/17 11:06 98.3 F 79 17 123/80 98 Intake and Output 06/16/17 06/17/17 06/17/17 23:59 07:59 15:59 Intake Total 770 / 770 1060 / 1060 Output Total 800 / 800 Balance -30 / -30 1060 / 1060 Intake: IV Fluids 1000 / 1000 0.9 % Sodium Chloride 1, 1000 / 1000 000 ML @ 100 mls/hr IVC . Q10H [facility] Rx#:[id number] Oral 770 / 770 60 / 60 Output: Urine 800 / 800 Other: Meal Dinner Percent of Meal Consumed 85% Weight 69.763 kg Patient Weight 06/17/17 23:59 Weight 69.763 kg - General Appearance Exam: Patient is alert and oriented. She is in no acute distress. Lungs clear to auscultation. Heart regular rate and rhythm. Abdomen is benign. There is no peripheral edema. - Lab 06/17/17 03:32 06/17/17 03:32 Most recent lab results Calcium 8.5 mg/dL (8.6-10.8) L 06/17/17 03:32 Phosphorus 2.5 mg/dL (2.3-4.7) 06/15/17 19:40 Magnesium 1.9 mg/dL (1.6-2.6) 06/17/17 03:32 Urine Creatinine 52 mg/dL 06/15/17 19:20 Urine Sodium < 20.0 mEq/L 06/15/17 19:55 Consult Discharge Plan - Plan Referrals: Kitty Tan MD [Primary Care Provider] - 06/23/17 1:45 pm (Please follow up as schedule....)
--- NOTE | 2017-06-17 14:29 | Internal Med Progress Note ---
<Nazia Rice - Last Filed: 06/17/17 14:26> Date of Encounter: 06/17/17 Time of Encounter: 14:26 - Assessment and plan (1) Hyponatremia Current Visit: Yes Status: Acute Assessment and plan: Na 115 on admission, now 121 Likely acute on chronic - previously Na in low 130s - exacerbated now by N/V Patient is euvolemic Likely prerenal secondary to N/V: Urine Na <20, Urine Osm 146, and FENa <0.4% Less likely SIADH with low urine osm Plan: Nephrology consulted - appreciate recommendations Hold HCTZ Consider weaning from Effexor Freewater restriction Continue IV fluids likely discharge tomorrow. (2) Acute renal failure Current Visit: Yes Status: Acute Assessment and plan: Cr 1.19, GFR 46 (baseline Cr 0.8) Likely prerenal secondary to N/V Plan as above Qualifiers: Acute renal failure type: unspecified Qualified Code(s): N17.9 - Acute kidney failure, unspecified (3) Hypomagnesemia Current Visit: Yes Status: Acute Assessment and plan: Resolved - Mag now 3.0 Continue to monitor and replace as needed (4) Hypokalemia Current Visit: Yes Status: Acute Assessment and plan: Resolved - now 4.0 Continue to monitor and replace as needed (5) Hypertension Current Visit: Yes Status: Chronic Assessment and plan: Normotensive currently - continue to hold HCTZ Qualifiers: Hypertension type: essential hypertension Qualified Code(s): I10 - Essential (primary) hypertension (6) GERD (gastroesophageal reflux disease) Current Visit: Yes Status: Chronic Assessment and plan: On PPI at home - continue to hold now No reflux symptoms Qualifiers: Esophagitis presence: without esophagitis Qualified Code(s): K21.9 - Gastro -esophageal reflux disease without esophagitis (7) DVT prophylaxis Current Visit: Yes Status: Acute Assessment and plan: Subcutaneous Heparin - Subjective Interval history: 61 year old female evaluated at bedside. she denies nausea, vomiting, diarrhea, fever, chills, chest pain, shortness of breath. she denies any further problems today. - Constitutional Vitals: Temp Pulse Resp BP Pulse Ox 97.7 F 84 18 119/77 97 06/17/17 07:15 06/17/17 07:15 06/17/17 07:15 06/17/17 07:15 06/17/17 07:15 General appearance: Present: cooperative, A&O X 3, no acute distress, answers questions appropriately - Head Head exam: Present: atraumatic, normocephalic - Neck Neck exam general surgery: Present: supple, trachea midline - Respiratory Respiratory exam: Present: CTAB - Cardiovascular Cardiovascular exam: Present: RRR, +S1, +S2 - GI/Abdominal GI/Abdominal exam: Present: normal bowel sounds, soft. Absent: distended, tenderness - Extremities Exam Extremities exam: Absent: cyanotic, pedal edema - Neurological Exam Neurological exam: Present: alert, oriented X3, no focal deficits - Psychiatric Psychiatric exam: Present: normal affect, normal mood - Skin Skin exam: Present: intact Internal Medicine: Result - Labs CBC & Chem 7: 06/17/17 03:32 06/17/17 03:32 Labs: Short CBC 06/17/17 Range/Units 03:32 WBC 5.0 (4.3-11.1) K/mcL Hgb 10.3 L (11.5-15.4) g/dL Hct 29.2 L (35.3-44.9) % Plt Count 204 (140-400) K/mcL BMP 06/17/17 03:32 Sodium 121 L Potassium 3.6 Chloride 88 L Carbon Dioxide 25 BUN 11 Creatinine 1.24 H Glucose 84 Calcium 8.5 L - ABG Interpretation ABG results: PT/INR, D-dimer PT 9.9 Seconds (9.4-12.1) 06/15/17 19:40 Consult Discharge Plan - Plan Referrals: Kitty Tan MD [Primary Care Provider] - 06/23/17 1:45 pm (Please follow up as schedule....) <Ash Rodriguez P - Last Filed: 06/17/17 15:01> Date of Encounter: 06/17/17 - Constitutional Vitals: Temp Pulse Resp BP Pulse Ox 97.7 F 84 18 119/77 97 06/17/17 07:15 06/17/17 07:15 06/17/17 07:15 06/17/17 07:15 06/17/17 07:15 Internal Medicine: Result - Labs CBC & Chem 7: 06/17/17 03:32 06/17/17 03:32 Labs: Short CBC 06/17/17 Range/Units 03:32 WBC 5.0 (4.3-11.1) K/mcL Hgb 10.3 L (11.5-15.4) g/dL Hct 29.2 L (35.3-44.9) % Plt Count 204 (140-400) K/mcL BMP 06/17/17 03:32 Sodium 121 L Potassium 3.6 Chloride 88 L Carbon Dioxide 25 BUN 11 Creatinine 1.24 H Glucose 84 Calcium 8.5 L - ABG Interpretation ABG results: PT/INR, D-dimer PT 9.9 Seconds (9.4-12.1) 06/15/17 19:40 - Attending Attestation I examined this patient and my medical decision-making was reviewed with the Resident Physician. I agree with the documented findings, disposition and treatment plan as described except to the extent set forth below.
[2017-06-18 05:31] LABS: Hematocrit 30.1 % (35.3-44.9); Hemoglobin 10.6 g/dL (11.5-15.4); Mean Corpuscular HGB Conc 35.2 g/dL (31.6-35.5); Mean Corpuscular Hemoglobin 36.6 pg (28.0-33.3); Mean Corpuscular Volume 103.8 fL (83.0-100.0); Mean Platelet Volume 8.3 fL (9.4-12.4); Platelet Count 173 K/mcL (140-400); Red Cell Distribution Width 12.2 % (11.5-14.5)
[2017-06-18 05:43] LABS: Alanine Aminotransferase 32 Units/L (0-55); Albumin 2.9 g/dL (3.5-5.0); Alkaline Phosphatase 100 Units/L (38-126); Aspartate Amino Transferase 55 Units/L (5-34); BUN/Creatinine Ratio 9 (6-26); Bilirubin,Total 0.9 mg/dL (0.2-1.2); Blood Urea Nitrogen 8 mg/dL (7-20); Calcium 8.4 mg/dL (8.6-10.8); Carbon Dioxide 23 mEq/L (19-29); Chloride 98 mEq/L (98-109); Globulin 2.8 g/dL (2.4-3.5); Glucose 91 mg/dL (70-99); Magnesium 1.4 mg/dL (1.6-2.6); Osmolality,Calculated 264 (280-300); Potassium 3.8 mEq/L (3.5-4.5); Sodium 128 mEq/L (136-145); Total Protein 5.7 g/dL (6.0-8.3); eGFR For African Americans > 60 (> 60); eGFR For Non-African Americans > 60 (> 60)
[2017-06-18] MEDS: *HR* Heparin 5,000 UNIT/ML VIAL SQ SCH ×3 (06:15→22:09)
[2017-06-18] MEDS: 0.9 % Sodium Chloride 1,000 ML IVC SCH (06:43)
--- NOTE | 2017-06-18 07:38 | Nephrology Progress Note ---
Date of Encounter: 06/18/17 Time of Encounter: 07:36 - Assessment and Plan (1) Hyponatremia Current Visit: Yes Status: Acute Patient has a clinical picture of euvolemic hyponatremia. Etiology includes hydrochlorothiazide and possibly Effexor as well. The hyponatremia is chronic and has been acutely exacerbated because of nausea vomiting and decreased oral intake. I think we can discontinue the IV fluids and monitor the patient. If her sodium continues to improve she may be able to be discharged tomorrow. She has remain off all thiazide-type diuretics indefinitely. Subjective Interval history: The patient reports she has been having some diarrhea. Her serum sodium is up to 128. Creatinine is down to 0.91. Objective - Vital Signs Vital signs: Vital Signs Temp Pulse Resp BP Pulse Ox 06/18/17 04:29 97.9 F 94 16 134/83 95 06/18/17 02:00 98.4 F 75 15 114/78 100 06/17/17 20:08 98.4 F 85 17 135/89 97 06/17/17 17:31 97.1 F L 89 16 147/81 97 Intake and Output 06/17/17 06/17/17 06/18/17 15:59 23:59 07:59 Intake Total 600 / 600 1240 / 1240 1000 / 1000 Balance 600 / 600 1240 / 1240 1000 / 1000 Intake: IV Fluids 1000 / 1000 1000 / 1000 0.9 % Sodium Chloride 1, 1000 / 1000 1000 / 1000 000 ML @ 100 mls/hr IVC . Q10H [facility] Rx#:[id number] Oral 600 / 600 240 / 240 Other: Meal Lunch Dinner Percent of Meal Consumed 50% 0% # Voids 2 Weight 70.579 kg Patient Weight 06/18/17 23:59 Weight 70.579 kg - General Appearance Exam: Patient is alert and oriented. She is in no acute distress. Lungs clear to auscultation. Heart regular rate and rhythm. Abdomen is benign. There is no peripheral edema. - Lab 06/18/17 05:17 06/18/17 05:17 Most recent lab results Calcium 8.4 mg/dL (8.6-10.8) L 06/18/17 05:17 Phosphorus 2.5 mg/dL (2.3-4.7) 06/15/17 19:40 Magnesium 1.4 mg/dL (1.6-2.6) L 06/18/17 05:17 Urine Creatinine 52 mg/dL 06/15/17 19:20 Urine Sodium < 20.0 mEq/L 06/15/17 19:55 Consult Discharge Plan - Plan Referrals: Kitty Tan MD [Primary Care Provider] - 06/23/17 1:45 pm (Please follow up as schedule....)
[2017-06-18] MEDS: Venlafaxine XR (24 HR) 150 MG CAP.ER.24H PO SCH (08:51)
[2017-06-18] MEDS: Aspirin Enteric Coated 81 MG Tablet PO SCH (08:51)
--- NOTE | 2017-06-18 08:57 | Internal Med Progress Note ---
<Nazia Rice - Last Filed: 06/18/17 08:55> Date of Encounter: 06/18/17 Time of Encounter: 08:55 - Assessment and plan (1) Hyponatremia Current Visit: Yes Status: Acute Assessment and plan: Na 115 on admission, now 128 Likely acute on chronic - previously Na in low 130s - exacerbated now by N/V Patient is euvolemic on exam Likely prerenal secondary to N/V: Urine Na <20, Urine Osm 146, and FENa <0.4% Less likely SIADH with low urine osm Plan: Nephrology consulted - appreciate recommendations stop HCTZ indefinitely. patient must be weaned off of Effexor and this will be done outpatient. Free water restriction per nephro: will stop IVF today and see if her sodium continues to be stable. if so, discharge tomorrow. (2) Acute renal failure Current Visit: Yes Status: Acute Assessment and plan: resolved likely pre renal. Qualifiers: Acute renal failure type: unspecified Qualified Code(s): N17.9 - Acute kidney failure, unspecified (3) Hypomagnesemia Current Visit: Yes Status: Acute Assessment and plan: replace as needed. (4) Hypokalemia Current Visit: Yes Status: Acute Assessment and plan: Resolved - now 4.0 Continue to monitor and replace as needed (5) Hypertension Current Visit: Yes Status: Chronic Assessment and plan: Normotensive currently must stop HCTZ indefinitely. Qualifiers: Hypertension type: essential hypertension Qualified Code(s): I10 - Essential (primary) hypertension (6) GERD (gastroesophageal reflux disease) Current Visit: Yes Status: Chronic Assessment and plan: On PPI at home - continue to hold now No reflux symptoms Qualifiers: Esophagitis presence: without esophagitis Qualified Code(s): K21.9 - Gastro -esophageal reflux disease without esophagitis (7) DVT prophylaxis Current Visit: Yes Status: Acute Assessment and plan: SQ heparin - Subjective Interval history: 61 year old female evaluated at bedside. she was sitting up in bed and eating her breakfast. she denies nausea and vomiting. she reports about two episodes of diarrhea overnight. she denies any further complaints today. - Constitutional Vitals: Temp Pulse Resp BP Pulse Ox 98.2 F 82 14 134/80 97 06/18/17 08:28 06/18/17 08:28 06/18/17 08:28 06/18/17 08:28 06/18/17 08:28 General appearance: Present: cooperative, A&O X 3, no acute distress, answers questions appropriately - Head Head exam: Present: atraumatic, normocephalic - Neck Neck exam general surgery: Present: supple, trachea midline - Respiratory Respiratory exam: Present: CTAB - Cardiovascular Cardiovascular exam: Present: RRR, +S1, +S2 - GI/Abdominal GI/Abdominal exam: Present: normal bowel sounds, soft. Absent: distended, tenderness - Extremities Exam Extremities exam: Absent: cyanotic, pedal edema - Neurological Exam Neurological exam: Present: alert, oriented X3, no focal deficits - Psychiatric Psychiatric exam: Present: normal affect, normal mood - Skin Skin exam: Present: intact Internal Medicine: Result - Labs CBC & Chem 7: 06/18/17 05:17 06/18/17 05:17 Labs: Short CBC 06/18/17 Range/Units 05:17 WBC 5.5 (4.3-11.1) K/mcL Hgb 10.6 L (11.5-15.4) g/dL Hct 30.1 L (35.3-44.9) % Plt Count 173 (140-400) K/mcL BMP 06/18/17 05:17 Sodium 128 L D Potassium 3.8 Chloride 98 Carbon Dioxide 23 BUN 8 Creatinine 0.91 Glucose 91 Calcium 8.4 L Liver Function 06/18/17 Range/Units 05:17 Total Bilirubin 0.9 (0.2-1.2) mg/dL AST 55 H (5-34) Units/L ALT 32 (0-55) Units/L Alkaline Phosphatase 100 (38-126) Units/L Albumin 2.9 L (3.5-5.0) g/dL - ABG Interpretation ABG results: PT/INR, D-dimer PT 9.9 Seconds (9.4-12.1) 06/15/17 19:40 Consult Discharge Plan - Plan Referrals: Kitty Tan MD [Primary Care Provider] - 06/23/17 1:45 pm (Please follow up as schedule....) <Ash Rodriguez - Last Filed: 06/18/17 16:54> Date of Encounter: 06/18/17 - Constitutional Vitals: Temp Pulse Resp BP Pulse Ox 98 F 80 14 137/78 97 06/18/17 12:44 06/18/17 12:44 06/18/17 12:44 06/18/17 12:44 06/18/17 12:44 Internal Medicine: Result - Labs CBC & Chem 7: 06/18/17 05:17 06/18/17 05:17 Labs: Short CBC 06/18/17 Range/Units 05:17 WBC 5.5 (4.3-11.1) K/mcL Hgb 10.6 L (11.5-15.4) g/dL Hct 30.1 L (35.3-44.9) % Plt Count 173 (140-400) K/mcL BMP 06/18/17 05:17 Sodium 128 L D Potassium 3.8 Chloride 98 Carbon Dioxide 23 BUN 8 Creatinine 0.91 Glucose 91 Calcium 8.4 L Liver Function 06/18/17 Range/Units 05:17 Total Bilirubin 0.9 (0.2-1.2) mg/dL AST 55 H (5-34) Units/L ALT 32 (0-55) Units/L Alkaline Phosphatase 100 (38-126) Units/L Albumin 2.9 L (3.5-5.0) g/dL - ABG Interpretation ABG results: PT/INR, D-dimer PT 9.9 Seconds (9.4-12.1) 06/15/17 19:40 - Attending Attestation I examined this patient and my medical decision-making was reviewed with the Resident Physician. I agree with the documented findings, disposition and treatment plan as described except to the extent set forth below. Na >125 will follow recommendations from nephrology
[2017-06-18] MEDS ORDERED: Magnesium Sulfate 2 GM in D5% in Water 100 ML IVPB ONE (08:59)
[2017-06-19] MEDS: *HR* Heparin 5,000 UNIT/ML VIAL SQ SCH (05:28)
[2017-06-19 05:41] LABS: Hematocrit 29.3 % (35.3-44.9); Immature Platelets 1.5 % (1.1-6.1); Mean Corpuscular HGB Conc 34.1 g/dL (31.6-35.5); Mean Corpuscular Hemoglobin 35.8 pg (28.0-33.3); Mean Platelet Volume 8.7 fL (9.4-12.4); Red Blood Count 2.79 M/mcL (3.82-4.97); Red Cell Distribution Width 12.5 % (11.5-14.5)
[2017-06-19 05:55] LABS: Alanine Aminotransferase 29 Units/L (0-55); Albumin 2.8 g/dL (3.5-5.0); Alkaline Phosphatase 95 Units/L (38-126); Aspartate Amino Transferase 36 Units/L (5-34); BUN/Creatinine Ratio 8 (6-26); Bilirubin,Total 0.8 mg/dL (0.2-1.2); Blood Urea Nitrogen 7 mg/dL (7-20); Calcium 8.7 mg/dL (8.6-10.8); Carbon Dioxide 24 mEq/L (19-29); Chloride 97 mEq/L (98-109); Globulin 2.9 g/dL (2.4-3.5); Glucose 92 mg/dL (70-99); Magnesium 1.2 mg/dL (1.6-2.6); Osmolality,Calculated 268 (280-300); Potassium 3.6 mEq/L (3.5-4.5); Sodium 130 mEq/L (136-145); Total Protein 5.7 g/dL (6.0-8.3); eGFR For African Americans > 60 (> 60); eGFR For Non-African Americans > 60 (> 60)
--- NOTE | 2017-06-19 08:28 | Nephrology Progress Note ---
Date of Encounter: 06/19/17 Time of Encounter: 08: - Assessment and Plan (1) Hyponatremia Current Visit: Yes Status: Acute Patient has a clinical picture of euvolemic hyponatremia. Etiology includes hydrochlorothiazide and possibly Effexor as well. The hyponatremia is chronic and has been acutely exacerbated because of nausea vomiting and decreased oral intake. Patient's sodium continues to improve. Renal function is normal. From a renal standpoint she can be discharged home. She should remain off all thiazide type diuretic. Consideration should also be given to discontinuing the Effexor as an outpatient. Subjective Interval history: Patient reports she feels well. Sodium is up to 1:30. Creatinine remains normal. Vital signs are stable. Objective - Vital Signs Vital signs: Vital Signs Temp Pulse Resp BP Pulse Ox 06/19/17 07:22 98.3 F 74 16 150/89 97 06/19/17 04:28 98.2 F 79 17 122/66 95 06/18/17 23:25 98.2 F 84 16 128/77 97 06/18/17 18:50 97.9 F 79 18 145/91 99 06/18/17 17:31 97.8 F 83 12 154/93 99 06/18/17 12:44 98 F 80 14 137/78 97 06/18/17 08:28 98.2 F 82 14 134/80 97 Intake and Output 06/18/17 06/19/17 06/19/17 23:59 07:59 15:59 Other: Weight 69.672 kg - General Appearance Exam: Patient is alert and oriented. No acute distress. Lungs clear to auscultation. Heart regular rhythm. Abdomen is benign. There is no peripheral edema. - Lab 06/19/17 05:06 06/19/17 05:06 Most recent lab results Calcium 8.7 mg/dL (8.6-10.8) 06/19/17 05:06 Phosphorus 2.5 mg/dL (2.3-4.7) 06/15/17 19:40 Magnesium 1.2 mg/dL (1.6-2.6) L 06/19/17 05:06 Urine Creatinine 52 mg/dL 06/15/17 19:20 Urine Sodium < 20.0 mEq/L 06/15/17 19:55 Consult Discharge Plan - Plan Referrals: Kitty Tan MD [Primary Care Provider] - 06/23/17 1:45 pm (Please follow up as schedule....)
--- NOTE | 2017-06-19 09:07 | Electrocardiograph Report ---
[place] [id number] Test Date: 2017-06-15 Pat Name: Ramandeep Larson Department: 104 Room: 2A11 Gender: F Cash Management Clerk: : 1955 Requested By: Kelly Aly Order Number: [id number] Reading MD: Chris Salvador MD Measurements Intervals [place] Rate: 92 P: 59 MT: 155 QRS: 10 QRSD: 84 T: 1 QT: 362 QTc: 411 Interpretive Statements SINUS RHYTHM Electronically Signed On 06-19-2017 9:05:56 EDT by Chris Salvador MD
[2017-06-19] MEDS: Venlafaxine XR (24 HR) 150 MG CAP.ER.24H PO SCH (09:28)
[2017-06-19] MEDS: Aspirin Enteric Coated 81 MG Tablet PO SCH (09:28)
[2017-06-19] MEDS ORDERED: Magnesium Oxide 400 MG TABLET PO SCH (09:30)
--- NOTE | 2017-06-19 10:12 | Discharge Summary ---
<[employer] - Last Filed: 06/19/17 13:03> Date of Encounter: 06/19/17 Time of Encounter: 10:10 - Discharge Diagnosis (1) Hyponatremia Priority: Primary Status: Resolved Comments: Likely secondary to nausea and vomiting -Resolved back to baseline (2) Hypomagnesemia Priority: Secondary Status: Acute (3) Acute renal failure Priority: Secondary Status: Resolved Qualifiers: Acute renal failure type: unspecified Qualified Code(s): N17.9 - Acute kidney failure, unspecified (4) Hypertension Priority: Secondary Status: Chronic Qualifiers: Hypertension type: essential hypertension Qualified Code(s): I10 - Essential (primary) hypertension (5) DVT prophylaxis Priority: Secondary Status: Acute - Discharge Medications Home Medications: Aspirin Enteric Coated [Aspirin EC] 81 mg PO DAILY 06/15/17 [History] Buspirone HCl [Buspar] 10 mg PO BID 06/15/17 [History] Losartan [Cozaar] 25 mg PO DAILY 06/15/17 [History] Omeprazole [PriLOSEC] 40 mg PO DAILY 06/15/17 [History] Venlafaxine HCl [Venlafaxine HCl ER] 150 mg PO DAILY 06/15/17 [History] Allergies/Adverse Reactions: 3 Allergy/AdvReac Type Severity Reaction Status Date / Time No Known Allergies Allergy Verified 06/15/17 19:18 Date of admission: 06/15/17 22:16 Primary care physician: Kitty Tan Discharging clinician: Eric España Anticipated date of discharge: 06/19/17 - Patient Status Disposition: Home, Self-Care Condition: Good Functional capacity at discharge: independent ambulation Overall status at discharge: patient is back to baseline - Discharge Instructions Follow Up With: Kitty Tan MD [Primary Care Provider] - 06/23/17 1:45 pm (Please follow up as schedule....) Additional Instructions: Please follow up with your primary care physician after discharge - Diet and Activity Activity: increase activity as tolerated, resume usual activities as tolerated Diet: advance to your usual diet Hospital course: Ms. Larson is a 61 year old female who presents to the emergency room with complaint of generalized weakness and she reports 3 weeks of nausea and vomiting. She states that she saw her primary care doctor who did preliminary blood work and found that her sodium was low at 116. She denies any history of low sodium, also denies any known knowledge of lung cancer. She denied increased water intake, numbness, tingling, tremors, confusion, any changes in mental status. She states that she is unable to keep down meals for approximately 2 months due to her nausea. On presentation to the emergency department, vital signs were all within normal limits. Lab results are significant for a sodium level of 115, potassium 3.0, chloride 74, BUN/ creatinine of 14/1.31. Remainder of labs were within normal limits including a urine sodium of less than 20. Nephrology was consulted and recommended beginning normal saline, restricting fluids to less than 2 L per day, and discontinuing her home medication of hydrochlorothiazide. She was admitted to inpatient medicine service for management of hyponatremia likely secondary to nausea vomiting as well as acute kidney injury. During course hospital stay, patient's sodium level was gradually increased back to her baseline level with a level of 130 upon day of discharge. She continues to remain asymptomatic and states that she is no longer experiencing any episodes of nausea, vomiting. She was able to tolerate meals. Nephrology workup revealed a normal cortisol level of 90, urine sodium of less than 20, urine osmolality of 147 with a fractional excretion of sodium less than 0.4%, likely indicating a prerenal component without renal disease. On day of discharge, patient's electrolyte abnormalities including renal function has resolved back to baseline level. She will be discharged home in stable medical condition, she was instructed to follow-up with her primary care physician and we will discontinue her hydrochlorothiazide at this time until she sees her primary care physician. Instructed to present back to the emergency room if she continues to experience any further symptoms or exacerbations. - Time Spent with Patient Total time spent providing and/or coordinating discharge services: 40 minutes - Constitutional Vitals: Temp Pulse Resp BP Pulse Ox 98.3 F 74 16 150/89 97 06/19/17 07:22 06/19/17 07:22 06/19/17 07:22 06/19/17 07:22 06/19/17 07:22 General appearance: Present: cooperative, A&O X 3, no acute distress, answers questions appropriately Exam: Gen.: Vitals noted. No acute distress. AAOx3 HEENT: PERRL/EOMI, oropharynx clear, Normocephalic, atraumatic Neck: Supple. No adenopathy. Cardiac: RRR, no murmur, +S1/S2 Pulmonary: CTA bilaterally, no wheezes, rales or rhonchi, equal chest expansion Abdomen: soft, nontender, BS noted, no guarding Back: Nontender throughout. MSK: ROM intact, no joint swelling noted Extremities: no BLE edema, nontender calf, no cyanosis or clubbing Neuro: A&Ox3, moves all extremities, no focal deficits Psych: Appropriate mood and behavior <Ash Rodriguez P - Last Filed: 06/19/17 18:33> Date of Encounter: 06/19/17 Date of admission: 06/15/17 22:16 Primary care physician: Kitty Tan [place] Hospital course: Ms. Larson is a 61 year old female - Time Spent with Patient Total time spent providing and/or coordinating discharge services: - Constitutional Vitals: Temp Pulse Resp BP Pulse Ox 98.6 F 77 18 151/88 99 06/19/17 11:25 06/19/17 11:25 06/19/17 11:25 06/19/17 11:25 06/19/17 11:25 - Attending Attestation I examined this patient and my medical decision-making was reviewed with the Resident Physician. I agree with the documented findings, disposition and treatment plan as described except to the extent set forth below.
[2017-06-19 11:27] VITALS: BP 151/88
== END 2017-06-19 12:30 | disposition home or self-care (01) | DRG 683 ==
LOC: 2ANU 19:07 → EMEROO 19:07 → 2ANU 21:10
PROVIDERS: ADMIT Internal Medicine Hematology & Oncology; ATTEND Internal Medicine

== ENCOUNTER 2019-08-23 16:45 | Inpatient (IN) ==
[2019-08-23 18:10] LABS: Eosinophils # 0.1 K/mcL (0.0-0.6); Eosinophils % 1.5 %; Hematocrit 35.8 % (35.3-44.9); Hemoglobin 12.8 g/dL (11.5-15.4); Immature Granulocytes % 0.5 % (0-4); Lymphocytes % 25.8 %; Mean Corpuscular HGB Conc 35.8 g/dL (31.6-35.5); Mean Corpuscular Hemoglobin 34.8 pg (28.0-33.3); Mean Corpuscular Volume 97.3 fL (83.0-100.0); Mean Platelet Volume 9.3 fL (9.4-12.4); Monocytes % 18.6 %; Neutrophils # 2.1 K/mcL (1.6-8.9); Platelet Count 174 K/mcL (140-400); Red Blood Count 3.68 M/mcL (3.82-4.97); Red Cell Distribution Width 12.1 % (11.5-14.5); Segmented Neutrophils % 52.6 %
[2019-08-23] MEDS ORDERED: *HR* LORazepam 2 MG/ML VIAL IVP ONE (18:11)
[2019-08-23 18:15] LABS: Monocytes # 0.7 K/mcL (0.0-1.3)
[2019-08-23 18:35] LABS: Alanine Aminotransferase 34 Units/L (7-52); Albumin 4.2 g/dL (3.5-5.7); Albumin/Globulin Ratio 1.2 (1.1-2.2); Alkaline Phosphatase 106 Units/L (34-104); Aspartate Amino Transferase 73 Units/L (13-39); BUN/Creatinine Ratio 10 (6-26); Blood Urea Nitrogen 21 mg/dL (8-23); Calcium 9.3 mg/dL (8.6-10.3); Carbon Dioxide 25 mEq/L (23-29); Chloride 85 mEq/L (98-107); Ethanol < 10 mg/dL (Less than 10); Globulin 3.5 g/dL (2.4-3.5); Glucose 114 mg/dL (70-105); Osmolality,Calculated 254 (280-300); Potassium 3.8 mEq/L (3.5-5.1); Sodium 120 mEq/L (136-145); Total Protein 7.7 g/dL (6.4-8.9); eGFR For African Americans 29 (> 60); eGFR For Non-African Americans 24 (> 60)
[2019-08-23 19:33] LABS: Bilirubin,Urine Negative (Negative); Blood,Urine Large (Negative); Clarity,Urine Cloudy (Clear); Color,Urine Yellow (Yellow); Glucose,Urine (UA) Normal (Normal); Ketones,Urine Negative (Negative); Leukocyte Esterase,Urine Negative (Negative); Nitrite,Urine Negative (Negative); Protein,Urine 100 mg/dL (Neg-Trace); Urobilinogen,Urine Normal (Normal)
[2019-08-23] MEDS ORDERED: *HR* LORazepam 2 MG/ML VIAL IVP PRN ×3 (19:33)
[2019-08-23 19:36] LABS: Bacteria,Urine Few per hpf (None-Few); Hyaline Casts,Urine None Seen per lpf (None-Few); RBC,Urine 15-30 per hpf (0-3); Squamous Epithelial Cell,Urine Many per lpf (None-Few)
[2019-08-23] MEDS ORDERED: *HR* Metoprolol 5 MG/5 ML VIAL IVP ONE (19:54)
[2019-08-24] MEDS: Thiamine (B-1) 100 MG TABLET PO SCH ×2 (01:47→08:29)
[2019-08-24 04:31] LABS: Hematocrit 34.6 % (35.3-44.9); Hemoglobin 12.4 g/dL (11.5-15.4); Mean Corpuscular HGB Conc 35.8 g/dL (31.6-35.5); Mean Corpuscular Hemoglobin 35.2 pg (28.0-33.3); Mean Corpuscular Volume 98.3 fL (83.0-100.0); Mean Platelet Volume 9.1 fL (9.4-12.4); Platelet Count 147 K/mcL (140-400); Red Blood Count 3.52 M/mcL (3.82-4.97); Red Cell Distribution Width 12.2 % (11.5-14.5)
[2019-08-24 04:46] LABS: Albumin 3.7 g/dL (3.5-5.7); Albumin/Globulin Ratio 1.2 (1.1-2.2); Bilirubin,Total 1.2 mg/dL (0.3-1.0); Calcium 8.9 mg/dL (8.6-10.3); Phosphorous 3.2 mg/dL (2.7-4.5); Total Protein 6.7 g/dL (6.4-8.9)
[2019-08-24] MEDS ORDERED: Naloxone 0.4 MG/ML INJ IVP PRN (04:46)
[2019-08-24] MEDS: Vitamin B Complex/Vit C/Vit E 1 EACH TABLET PO SCH (08:29)
[2019-08-24] MEDS ORDERED: Ondansetron 4 MG/2 ML VIAL IVP PRN (08:50)
[2019-08-24 11:22] LABS: Calcium 8.8 mg/dL (8.6-10.3)
[2019-08-24 15:50] LABS: Calcium 9.3 mg/dL (8.6-10.3); Potassium 3.9 mEq/L (3.5-5.1)
[2019-08-24 20:12] LABS: Calcium 8.8 mg/dL (8.6-10.3); Potassium 4.4 mEq/L (3.5-5.1)
[2019-08-24] MEDS: Metoprolol XL (24 HR) Succ 25 MG TAB.ER.24H PO SCH (20:30)
[2019-08-24] MEDS: Aspirin Enteric Coated 81 MG Tablet PO SCH (20:31)
[2019-08-24 22:45] LABS: Calcium 8.8 mg/dL (8.6-10.3); Potassium 4.1 mEq/L (3.5-5.1)
[2019-08-25 07:59] LABS: Calcium 8.7 mg/dL (8.6-10.3)
[2019-08-25] MEDS: Vitamin B Complex/Vit C/Vit E 1 EACH TABLET PO SCH (08:41)
[2019-08-25] MEDS: Thiamine (B-1) 100 MG TABLET PO SCH (08:41)
[2019-08-25 11:12] LABS: Calcium 8.6 mg/dL (8.6-10.3)
[2019-08-25 15:20] LABS: Calcium 8.8 mg/dL (8.6-10.3); Potassium 4.2 mEq/L (3.5-5.1)
[2019-08-25] MEDS: Acetaminophen 325 MG TABLET PO PRN (18:29)
[2019-08-25 18:54] LABS: Calcium 8.9 mg/dL (8.6-10.3)
[2019-08-25] MEDS: 0.9 % Sodium Chloride 1,000 ML IVC SCH (21:35)
[2019-08-25] MEDS: Metoprolol XL (24 HR) Succ 25 MG TAB.ER.24H PO SCH (21:35)
[2019-08-25] MEDS: Aspirin Enteric Coated 81 MG Tablet PO SCH (21:35)
[2019-08-25 23:09] LABS: Calcium 8.7 mg/dL (8.6-10.3); Potassium 3.8 mEq/L (3.5-5.1)
[2019-08-26] MEDS: Acetaminophen 325 MG TABLET PO PRN
[2019-08-26 06:25] LABS: Calcium 8.3 mg/dL (8.6-10.3)
[2019-08-26] MEDS: Thiamine (B-1) 100 MG TABLET PO SCH (09:05)
[2019-08-26] MEDS ORDERED: Acetaminophen 325 MG TABLET PO PRN (09:05)
[2019-08-26] MEDS: Vitamin B Complex/Vit C/Vit E 1 EACH TABLET PO SCH (09:05)
[2019-08-26] MEDS: 0.9 % Sodium Chloride 1,000 ML IVC SCH (11:05)
[2019-08-26 13:22] VITALS: BP 135/75
[2019-08-26 14:09] LABS: Calcium 8.8 mg/dL (8.6-10.3); Potassium 3.8 mEq/L (3.5-5.1)
== END 2019-08-26 15:36 | disposition home or self-care (01) | DRG 641 ==
LOC: EMEROOARM 16:45 → 2ANU 16:45 → SUATTDRO 20:14 → 2ANU 22:11
PROVIDERS: ADMIT Family Medicine; ATTEND Internal Medicine